=== PATIENT | male | born 2000 | race Caucasian/White ===

== ENCOUNTER → 2018-05-18 | Outpatient (CLI) | payer OTHER ==
--- NOTE | 2018-05-18 17:28 | KCIC ---
MR of the left knee Indication: Injury on May 16. Hyperextension. Pain laterally. Technique: The standard multiplanar sequences are obtained. FINDINGS: Artifact: No significant image degradation. Medial meniscus:Intact. Lateral meniscus: Intact. Anterior cruciate ligament: Intact Posterior cruciate ligament: Intact Medial collateral ligament: Intact. Lateral structures: * Iliotibial band: Intact. * Lateral collateral structures: Mild edema within the conjoined tendon at the fibular head insertion. No evidence of rupture or avulsion. There is mild subjacent edema within the fibular head. Mild surrounding soft tissue edema. Proximal fibular collateral ligament intact. * Popliteus tendon attachment: Intact Extensive mechanism: * Patellar tendon: Intact * Quadriceps tendon: Intact * Retinacular structures: Intact Fluid: Trace joint effusion. No significant Marquez's cyst. Intra-articular bodies: None visualized Joint compartments * patellofemoral joint:Intact * medial compartment:Intact * lateral compartment:Intact Bones: Acute subchondral marrow edema/contusion at the anterior central and medial tibial plateau with a subtle nondisplaced fracture. No evidence of displaced or depressed macro fracture. Soft tissue: Unremarkable Impression: 1. Subchondral marrow contusion with subtle nondisplaced incomplete posttraumatic fracture at the anterior tibial plateau. 2. Mild strain or partial tear of the lateral conjoined tendon at the fibular head. No complete avulsion or retraction. Proximal fibular collateral ligament and biceps femoris tendon are intact. Electronically signed by: Indra Ocampo MD (05/18/2018 5:25 PM) [id number]
== END | disposition home or self-care (01) ==
LOC: KCIC MRI 16:02
PROVIDERS: ATTEND Orthopaedic Surgery
DX: S82.092 Other fracture of left patella (principal); X58.XXXD Exposure to other specified factors, subsequent encounter
CPT/HCPCS: 73721